=== PATIENT | male | born 1990 | race Caucasian/White ===

== ENCOUNTER 2022-12-06 09:55 | Outpatient (CLI) | payer BC, SELFPAY ==
--- NOTE | 2022-12-06 10:15 | CRLHL7_ITS ---
For Patients: As a result of the Century Cures Act, medical imaging exams and procedure reports are released immediately into your electronic medical record. You may view this report before your referring provider. If you have questions, please contact your health care provider. INDICATION: Palpable mass left parotid gland. TECHNIQUE: Directed soft tissue ultrasound. FINDINGS: In the region of the superficial portion of the left parotid gland there is a 1.3 x 0.5 x 1.3 cm oval-shaped slightly lobulated nodule. This may reflect an intra parotid gland lymph node. It does not appear to be particularly hypervascular. A limited CT may be helpful further characterization. IMPRESSION: 1.3 x 0.5 x 1.3 cm lobulated lymph node superficial portion left parotid gland. Dictated by Aristides Gonzalez MD @ 12/06/2022 11:58:24 AM (Electronically Signed)
== END 2022-12-06 09:56 | disposition home or self-care (01) ==
LOC: US 09:56
PROVIDERS: Visit Provider Otolaryngology
DX: H92.09 Otalgia, unspecified ear (principal); R22.1 Localized swelling, mass and lump, neck
CPT/HCPCS: 76536

== ENCOUNTER 2022-12-24 09:28 | Outpatient (CLI) | payer BC, SELFPAY ==
--- NOTE | 2022-12-24 10:00 | CRLHL7_ITS ---
For Patients: As a result of the Century Cures Act, medical imaging exams and procedure reports are released immediately into your electronic medical record. You may view this report before your referring provider. If you have questions, please contact your health care provider. INDICATION: Enlarged left-sided lymph nodes. TECHNIQUE: CT of the neck with 98 cc Isovue 370 iodinated contrast agent. Coronal and sagittal reconstructions are included. COMPARISON: Ultrasound from 12/06/2022. FINDINGS: The skin marker is visible on the rechecker images overlying the left parotid space. It is not visible on the CT acquisition. However, no mass or pathologic lesion is present within the left parotid space. There is a small normal appearing intraparotid lymph node within the anterior aspect of the parotid gland. Normal structures are visible at this location. No mass or lymphadenopathy elsewhere within the neck. The oral cavity, nasopharyngeal, oropharyngeal and hypopharyngeal spaces are normal. The supraglottic, glottic and infraglottic larynx are normal. The airway including the trachea is normal and is patent. The parotid glands, submandibular and sublingual glands are normal in appearance. The thyroid gland is normal in appearance. The vascular structures opacify normally with contrast material. No suspicious lytic or blastic osseous lesions. No bony spinal canal or neural foraminal stenosis. No periapical dental disease. Visualized paranasal sinuses and mastoid air cells are clear. Visualized orbital and intracranial contents are normal. Supraclavicular regions, mediastinum and soft tissues of the imaged chest wall are normal. Visualized portions of the upper lungs are clear. IMPRESSION: 1. No mass or other focal lesion underlying the skin marker at the left parotid space. A normal appearing intraparotid lymph node is present at this location. No mass or lymphadenopathy elsewhere. 2. No other significant cervical soft tissue pathology. Please note that all CT scans at this facility use dose modulation, iterative reconstruction, and/or weight-based dosing when appropriate to reduce radiation dose to as low as reasonably achievable. Dictated by Roshan Ledesma MD @ 12/24/2022 12:50:48 PM (Electronically Signed)
== END 2022-12-24 09:29 | disposition home or self-care (01) ==
LOC: CT 09:30
PROVIDERS: Visit Provider Otolaryngology
DX: R59.9 Enlarged lymph nodes, unspecified (principal)
CPT/HCPCS: 70491; Q9967